=== PATIENT | male | born 1990 | race Caucasian/White ===

== ENCOUNTER 2020-04-19 11:27 | Emergency (ER) | payer OTHER ==
[~2020-04-19] VITALS: Ht 190.5 cm; Wt 99.4 kg
[2020-04-19] MEDS ORDERED: hydrOXYzine 25 MG TAB PO ONE (12:15)
[2020-04-19 12:27] LABS: HEMATOCRIT 42.5 % (42.0-52.0); HEMOGLOBIN 15.1 g/dl (13.5-17.5); MEAN CORPUSCULAR HEMOGLOBIN 31.3 pg (27.0-33.0); MEAN CORPUSCULAR HGB CONC 35.5 g/dl (32.0-36.5); MEAN CORPUSCULAR VOLUME 88.2 fl (80.0-96.0); PLATELET COUNT, AUTOMATED 211 10^3/uL (150-450); RED BLOOD COUNT 4.82 10^6/uL (4.30-6.10); WHITE BLOOD COUNT 5.8 10^3/uL (4.0-10.0)
--- NOTE | 2020-04-19 12:42 | REP ---
INDICATION: SOB COMPARISON: None. TECHNIQUE: PA and lateral. FINDINGS: The mediastinum and cardiac silhouette are normal. The lung castillo are clear and without acute consolidation, effusion, or pneumothorax. The skeletal structures are intact and normal. IMPRESSION: No acute cardiopulmonary process. <Electronically signed by Aren San > 04/19/20 [id number]
[2020-04-19 13:09] LABS: ACETAMINOPHEN LEVEL < 2.0 UG/ML (10.0-30.0); ALBUMIN 4.3 GM/DL (3.2-5.2); ALT/SGPT 35 U/L (12-78); BILIRUBIN,DIRECT 0.2 MG/DL (0.0-0.2); BILIRUBIN,TOTAL 0.7 MG/DL (0.2-1.0); BLOOD UREA NITROGEN 17 MG/DL (7-18); CALCIUM LEVEL 9.6 MG/DL (8.5-10.1); CARBON DIOXIDE LEVEL 26 MEQ/L (21-32); CHLORIDE LEVEL 108 MEQ/L (98-107); CREATININE FOR GFR 1.21 MG/DL (0.70-1.30); ETHYL ALCOHOL (ETHANOL) < 0.003 % (0.000-0.010); GLOMERULAR FILTRATION RATE > 60.0 (>60); GLUCOSE, FASTING 107 MG/DL (70-100); POTASSIUM SERUM 3.7 MEQ/L (3.5-5.1); SALICYLATE LEVEL < 1.7 MG/DL (5.0-30.0); SODIUM LEVEL 139 MEQ/L (136-145); TOTAL PROTEIN 7.2 GM/DL (6.4-8.2)
[2020-04-19] MEDS ORDERED: HYDR-3363 PO (14:53)
[2020-04-19 15:08] VITALS: BP 163/80
--- NOTE | 2020-04-21 07:31 | ECGEPIP ---
[facility] - ED Test Date: 2020-04-19 Pat Name: MARLEN LUEVANO Department: Room: - Gender: Male Eye Specialist: CHASTITY : [id number] Requested By: MONAE Adamson Order Number: [id number] Reading MD: Berna Roblero Measurements Intervals [place] Rate: 54 P: 24 OR: 166 QRS: 79 QRSD: 105 T: 43 QT: 411 QTc: 389 Interpretive Statements SINUS BRADYCARDIA WITH MARKED SINUS ARRHYTHMIA No prior Electronically Signed on 04-21-2020 7:31:11 EST by Berna Roblero
== END 2020-04-19 15:09 | disposition home or self-care (01) ==
LOC: M ED 11:27
DX: F41.9 Anxiety disorder, unspecified (principal); R00.1 Bradycardia, unspecified; Z87.891 Personal history of nicotine dependence
CPT/HCPCS: 71046; 80048; 80076; 84443; 85027; 93005; 99284; G0480